=== PATIENT | female | born 1965 | race American Indian/Alaskan Native ===

== ENCOUNTER 2017-05-21 16:26 | Emergency (ER) | payer OTHER ==
[2017-05-21 17:00] LABS: Hematocrit 31.1 % (30.3-42.9); Hemoglobin 10.1 gm/dl (10.1-14.3); Mean Corpuscular HGB Conc 32 % (30-34); Mean Corpuscular Hemoglobin 27 pg (28-32); Mean Corpuscular Volume 83 fl (79-97); Platelet Count 281 K/mm3 (140-440); Red Blood Count 3.77 M/mm3 (3.65-5.03); White Blood Count 12.9 K/mm3 (4.5-11.0)
--- NOTE | 2017-05-21 17:06 | Emergency Department Report ---
ED Abdominal Pain HPI - General Chief Complaint: Abdominal Pain Stated Complaint: CANT URINATE Time Seen by Provider: 05/21/17 17:01 Source: patient Mode of arrival: Ambulatory Limitations: No Limitations - History of Present Illness Initial Comments: 51 YO FEMALE WITH URINARY RETENTION THAT BEGAN TODAY IN THE MORNING. PT REPORTS FREQUENCY,URGENCY BUT VERY LITTLE URINE OUTPUT. SHE HAS A H/O DM,HTN AND UTERINE PROLAPSE FOR WHICH HER DR NANETTE LI WANTED TO DO A COMPLETE HYSTERECTOMY BUT PT REFUSED. MD Complaint: abdominal pain -: Sudden Location: suprapubic (UNABLE TO URNIATE, SMALL AMOUNT COMES OUT) Migration to: no migration Severity scale (0 -10): 4 Quality: aching Consistency: constant Improves With: nothing Worsens With: movement - Related Data Allergies Allergy/AdvReac Type Severity Reaction Status Date / Time No Known Allergies Allergy Unverified 05/21/17 16:32 ED Review of Systems ROS: Stated complaint: CANT URINATE Other details as noted in HPI Constitutional: denies: chills, fever Eyes: denies: eye pain, eye discharge, vision change ENT: denies: ear pain, throat pain Respiratory: denies: cough, shortness of breath, wheezing Cardiovascular: denies: chest pain, palpitations Endocrine: no symptoms reported Gastrointestinal: denies: abdominal pain, nausea, diarrhea Genitourinary: urgency, frequency. denies: discharge Musculoskeletal: denies: back pain, joint swelling, arthralgia Skin: denies: rash, lesions Neurological: denies: headache, weakness, paresthesias Psychiatric: denies: anxiety, depression Hematological/Lymphatic: denies: easy bleeding, easy bruising ED Past Medical Hx - Past Medical History Hx Hypertension: Yes Hx Diabetes: Yes - Surgical History Past Surgical History?: No - Social History Smoking Status: Never Smoker Substance Use Type: None ED Physical Exam - General Limitations: No Limitations General appearance: alert, in no apparent distress - Head Head exam: Present: atraumatic, normocephalic - Eye Eye exam: Present: normal appearance - ENT ENT exam: Present: mucous membranes moist - Neck Neck exam: Present: normal inspection - Respiratory Respiratory exam: Present: normal lung sounds bilaterally. Absent: respiratory distress - Cardiovascular Cardiovascular Exam: Present: regular rate, normal rhythm. Absent: systolic murmur, diastolic murmur, rubs, gallop - GI/Abdominal GI/Abdominal exam: Present: soft, tenderness (SUPRAPUBIC), normal bowel sounds. Absent: guarding, rebound - Rectal Rectal exam: Present: deferred - External exam: Present: swelling (PROLAPSED UTERUS-ON BED, PUSHED BACK INTO THE VAGINA) Bi-manual exam: Present: uterine enlargement - Extremities Exam Extremities exam: Present: normal inspection, full ROM - Back Exam Back exam: Present: normal inspection - Neurological Exam Neurological exam: Present: alert, oriented X3 - Psychiatric Psychiatric exam: Present: normal affect, normal mood - Skin Skin exam: Present: warm, dry, intact, normal color. Absent: rash ED Course Vital Signs 05/21/17 05/21/17 16:32 18:54 Temperature 98.4 F Pulse Rate 123 H 92 H Respiratory 18 16 Rate Blood Pressure 202/109 Blood Pressure 184/101 [Right] O2 Sat by Pulse 100 100 Oximetry - Reevaluation(s) Reevaluation #1: 05/21/17 18:34 PT MARR IS FINALLY PUTTING OUT URINE. HER HORTICULTURE SUPERVISOR DR ROMINA LI HAD ADVISED HER TO HAVE A HYSTERECTOMY BUT PT DECLINED. ED Medical Decision Making - Lab Data Result diagrams: 05/21/17 16:44 05/21/17 16:44 - Radiology Data Radiology results: image reviewed (ACUTE ABD SERIES:NEGATIVE) - Medical Decision Making WILL CALL FOR ADMISSION FOR THIS PT BECAUSE OF THE URINARY OBSTRUCTION. DR TSILES HAS TAKEN OVER HER CARE . HE WILL CHECK HER CT OF ABDOMEN RESULTS AND CALL FOR ADMISSION. Critical care attestation.: If time is entered above; I have spent that time in minutes in the direct care of this critically ill patient, excluding procedure time. ED Disposition Clinical Impression: Urinary (tract) obstruction, Prolapsed uterus Abdominal pain Qualifiers: Abdominal location: unspecified location Qualified Code(s): R10.9 - Unspecified abdominal pain Disposition: OP ADMIT IP TO THIS HOSP Is pt being admited?: Yes Does the pt Need Aspirin: No Condition: Stable Instructions: Abdominal Pain (ED) Referrals: PRIMARY CARE, [Primary Care Provider] - 3-5 Days
[2017-05-21] MEDS ORDERED: TORADOL IV ONE (17:10)
[2017-05-21 17:16] LABS: Albumin 3.9 g/dL (3.9-5); Albumin/Globulin Ratio 1.1 %; Bilirubin,Total 0.3 mg/dL (0.1-1.2); Calcium 8.4 mg/dL (8.4-10.2); Chloride 96.8 mmol/L (98-107); Potassium 5.2 mmol/L (3.6-5.0); Total Protein 7.5 g/dL (6.3-8.2)
[2017-05-21 17:19] LABS: Bilirubin,Urine NEG (Negative); Blood,Urine SM (Negative); Ketones,Urine NEG (Negative); Leukocyte Esterase,Urine TR (Negative); Mucus,Urine FEW /HPF; Nitrite,Urine NEG (Negative); Urobilinogen,Urine < 2.0 mg/dL (<2.0)
[2017-05-21] MEDS ORDERED: NACL 0.9% 1000 ML 1,000 ML IV ONE ×2 (18:07→20:10)
[2017-05-21 18:45] LABS: Blastocytes % (Manual) 0 %
[2017-05-21 18:46] LABS: Basophils % (Manual) 0 % (0.0-1.8); Eosinophils % (Manual) 0 % (0.0-4.3)
[2017-05-21 18:52] LABS: Anisocytosis 1+; Diff Status Complete; Hypochromasia 1+
--- NOTE | 2017-05-21 18:53 | XRay Report ---
FINAL REPORT PROCEDURE: XR ABD SERIES W CXR 1V TECHNIQUE: Chest x-ray and two views of the abdomen are obtained HISTORY: ABD PAIN COMPARISON: No prior studies are available for comparison. FINDINGS: The heart is normal in size. There is no focal infiltrate, pneumothorax or pleural effusion. No free intraperitoneal air is seen. There may be mild right-sided constipation. Minimal small bowel air is seen without small-bowel dilation. No suspicious calcifications are seen. Mild dextroscoliosis is seen centered in the lower lumbar spine. IMPRESSION: There may be mild right-sided constipation.
[2017-05-21] MEDS ORDERED: CATAPRES PO ONE (21:28)
--- NOTE | 2017-05-21 21:38 | Cat Scan Report ---
FINAL REPORT PROCEDURE: CT ABDOMEN PELVIS W CON TECHNIQUE: Computerized axial tomography of the abdomen and pelvis was performed after the IV injection of iodinated nonionic contrast. HISTORY: URINARY RETENSTION, ?MASS COMPARISON: No prior studies are available for comparison. FINDINGS: Prominent interstitial markings are noted. There is mild cardiomegaly. Liver, spleen, pancreas and adrenal glands are within normal limits. Bilateral kidneys demonstrate uniform enhancement without hydronephrosis. There is mild degree bilateral perinephric fat stranding which is most likely a normal variation. Aorta is of normal caliber. There is no free fluid or free air. Gallbladder is partially distended. Small bowel loops are within normal limits. Multiple colonic diverticula are noted without evidence of diverticulitis. Appendix is normal. Mild degree residual stool is noted. An iso dense mass lesion is identified along the lateral aspect of uterus on the left measuring about 5 x 5 centimeters. A calcified lesion measuring 2 centimeters is noted in the anterior uterus. Mild degree degenerative changes are noted involving the lumbar spine. Is noted.. IMPRESSION: Mild cardiomegaly. Prominent interstitial markings most likely represent interstitial fibrosis versus interstitial edema. 5 centimeter isodense mass along the left lateral aspect of uterus most likely represents a fibroid. Ultrasound evaluation is recommended. A 2 centimeter calcific lesion of the anterior uterus also represents a calcified fibroid.
--- NOTE | 2017-05-21 22:31 | Emergency Department Report ---
Blank Doc - Documentation Documentation: Patient is a 51-year-old female that presented to the ER with urinary retention and bladder pain and uterine prolapse. I took over care from this ER doc for pending CT scan and possible MOTOR CHECKER consultation. June placed and 1 L of urine evacuated into June bag. Previous ER doc reduced uterine prolapse.Lab review, found to have elevated potassium and creatinine and low sodium, patient received 2 L of sodium chloride. Labs were rechecked. Electrolytes and kidney function improved. Patient to increase water. Pelvic exam done with ER nurse in room and uterus in normal position and no uterine prolapse noted. No acute findings on CT scan CT scan report reviewed. Discussed case with Dr. Santoyo MOTOR CHECKER on-call. Dr. Santoyo recommends leaving June in place and follow up in office as an outpatient. Patient also given reduction instructions for uterine prolapse. Patient stable for discharge home. No need for admission into the hospital. Patient to see primary care within 3. She will need her kidney function rechecked as outpatient. Patient to avoid NSAIDs.
[2017-05-21 23:11] LABS: Calcium 7.9 mg/dL (8.4-10.2); Chloride 103.9 mmol/L (98-107); Potassium 4.9 mmol/L (3.6-5.0)
[2017-05-21] MEDS ORDERED: DIFLUCAN PO ONE (23:24)
[2017-05-22 00:31] VITALS: BP 153/87
== END 2017-05-22 00:25 | disposition home or self-care (01) ==
LOC: ED 16:26
DX: N39.0 Urinary tract infection, site not specified (principal); N81.4 Uterovaginal prolapse, unspecified; I10 Essential (primary) hypertension; E11.9 Type 2 diabetes mellitus without complications
CPT/HCPCS: 36415; 51701; 74022; 74177; 80048; 80053; 81001; 81025; 83690; 85007; 85025; 96360; 99285; J7030; Q9967

== ENCOUNTER 2017-05-22 09:47 | Emergency (ER) | payer OTHER ==
[2017-05-22 09:52] VITALS: BP 144/73
--- NOTE | 2017-05-22 10:02 | Emergency Department Report ---
ED General Adult HPI - General Chief complaint: Medical Clearance Stated complaint: CATHETER REMOVAL Time Seen by Provider: 05/22/17 09:56 Source: patient, RN notes reviewed, old records reviewed Mode of arrival: Ambulatory Limitations: No Limitations - History of Present Illness Initial comments: HERE FOR MARR CHECK SEE NOT FROM YEST MD NOT IN TODAY ANTICIPATED -: Gradual Treatments Prior to Arrival: none - Related Data Allergies Allergy/AdvReac Type Severity Reaction Status Date / Time No Known Allergies Allergy Verified 05/21/17 23:15 ED Review of Systems ROS: Stated complaint: CATHETER REMOVAL Other details as noted in HPI Comment: NO COMPLAINTS JUST RECHECK ED Past Medical Hx - Past Medical History Hx Hypertension: Yes Hx Diabetes: Yes - Surgical History Past Surgical History?: No - Social History Smoking Status: Never Smoker Substance Use Type: None ED Physical Exam - General Limitations: No Limitations General appearance: alert - Head Head exam: Present: atraumatic - Eye Eye exam: Present: normal appearance - ENT ENT exam: Present: mucous membranes moist - Neck Neck exam: Present: normal inspection - Respiratory Respiratory exam: Present: normal lung sounds bilaterally - Cardiovascular Cardiovascular Exam: Present: regular rate - GI/Abdominal GI/Abdominal exam: Present: soft, normal bowel sounds. Absent: distended, tenderness, guarding, rebound, rigid, diminished bowel sounds - Rectal Rectal exam: Present: deferred - Extremities Exam Extremities exam: Present: normal inspection - Back Exam Back exam: Present: normal inspection - Neurological Exam Neurological exam: Present: alert, oriented X3, CN II-XII intact - Psychiatric Psychiatric exam: Present: normal affect, normal mood - Skin Skin exam: Present: warm, dry, intact ED Course Vital Signs 05/22/17 09:49 Temperature 98.4 F Pulse Rate 95 H Respiratory 16 Rate Blood Pressure 144/73 O2 Sat by Pulse 98 Oximetry - Reevaluation(s) Reevaluation #1: 05/22/17 10:17 HERE YEST W URINARY OBST AND UTERINE PROL. MARR PLACED TOLD TO SEE MD TODAY BUT MD NOT OPEN WILL SEE ON THURSDAY HERE TO HAVE MARR CHECKED DID NOT KNOW IF COULD STAY IN DRAINING CLEAR URINE NO PROBLEMS UTERUS INTERNAL PT IN NO PAIN VSS NO FEVER EDUCATED ON MARR CARE DC HOME W FOLLOW UP THURSDAY ED Medical Decision Making - Medical Decision Making SEE NOTE - Differential Diagnosis RECHECK Critical care attestation.: If time is entered above; I have spent that time in minutes in the direct care of this critically ill patient, excluding procedure time. ED Disposition Clinical Impression: Urinary (tract) obstruction, Marr catheter in place Disposition: TO HOME OR SELFCARE Is pt being admited?: No Does the pt Need Aspirin: No Condition: Stable Instructions: Marr Catheter Placement and Care (ED), Urinary Leg Bag (GEN) Additional Instructions: FOLLOW UP DR GEORGE PLANNED CARE OF MARR CATH INSTRUCTED CONTINUE HOME MEDS HAVE DR GEORGE REVIEW YOUR LABS FROM YESTERDAYS VISIT Forms: Work/School Release Form(ED) Time of Disposition: 10:01
== END 2017-05-22 11:30 | disposition home or self-care (01) ==
LOC: ED 09:47
DX: T83.098A Other mechanical complication of other urinary catheter, initial encounter (principal); I10 Essential (primary) hypertension; E11.9 Type 2 diabetes mellitus without complications; Y84.6 Urinary catheterization as the cause of abnormal reaction of the patient, or of later complication, without mention of misadventure at the time of the procedure; Y92.89 Other specified places as the place of occurrence of the external cause
CPT/HCPCS: 99282

== ENCOUNTER 2017-05-26 01:33 | Emergency (ER) | payer OTHER | END 2017-05-26 01:46 | disposition left against medical advice (07) | LOC: ED 01:33 | DX: R33.9 Retention of urine, unspecified (principal); Z53.21 Procedure and treatment not carried out due to patient leaving prior to being seen by health care provider ==

== ENCOUNTER 2018-07-18 12:01 | Inpatient (IN) | payer OTHER ==
[2018-07-18] MEDS ORDERED: HumuLIN R SUB-Q ONE (12:39)
[2018-07-18] MEDS ORDERED: PROVENTIL IH STA (12:41)
[2018-07-18] MEDS ORDERED: HumuLIN R ONE (12:44)
--- NOTE | 2018-07-18 12:47 | Emergency Department Report ---
- General Chief Complaint: Upper Respiratory Infection Stated Complaint: CHAN/COUGH Time Seen by Provider: 07/18/18 12:40 Source: patient Mode of arrival: Wheelchair Limitations: No Limitations - History of Present Illness Initial Comments: 53-year-old female with past medical history hypertension, diabetes, denies history of asthma since [facility] complaining of cough, congestion, coryza, otherwise, been worsening over the last 1 week. She denies any foreign travel or known sick contacts. Has a history of diabetes but has been off of her medication for about 6 months ago doctor discontinuing her diabetes Janumet for her having her blood sugars well controlled. No fever, chills, sweats. She reports no nausea, vomiting or no diarrhea. No rashes. No chest pain or palpitations. No presyncope MD Complaint: cough, sore throat, rhinorrhea, nasal congestion Severity: mild Quality: dull Consistency: constant Improves With: nothing Worsens With: nothing Associated Symptoms: rhinorrhea, nasal congestion, cough. denies: myalgias, diaphoresis, nausea, confusion, right sweats, weight loss, epistaxis, ear pain - Related Data Allergies Allergy/AdvReac Type Severity Reaction Status Date / Time No Known Allergies Allergy Verified 05/21/17 23:15 ED Review of Systems ROS: Stated complaint: CHAN/COUGH Other details as noted in HPI Constitutional: denies: chills, fever Eyes: denies: eye pain, eye discharge, vision change ENT: denies: ear pain, throat pain Respiratory: cough. denies: shortness of breath, wheezing Cardiovascular: denies: chest pain, palpitations Endocrine: no symptoms reported. denies: excessive sweating, flushing, increased thirst Gastrointestinal: denies: abdominal pain, nausea, diarrhea Genitourinary: denies: urgency, dysuria, discharge Musculoskeletal: denies: back pain, joint swelling, arthralgia Skin: denies: rash, lesions Neurological: denies: headache, weakness, paresthesias Psychiatric: denies: anxiety, depression Hematological/Lymphatic: denies: easy bleeding, easy bruising ED Past Medical Hx - Past Medical History Previous Medical History?: Yes Hx Hypertension: Yes Hx Diabetes: Yes Hx Asthma: Yes - Surgical History Past Surgical History?: No - Social History Smoking Status: Never Smoker Substance Use Type: None ED Physical Exam - General Limitations: No Limitations General appearance: alert, in no apparent distress - Head Head exam: Present: atraumatic, normocephalic - Eye Eye exam: Present: normal appearance, PERRL, EOMI - ENT ENT exam: Present: normal exam, normal orophraynx, mucous membranes moist, TM's normal bilaterally - Neck Neck exam: Present: normal inspection, full ROM. Absent: tenderness - Respiratory Respiratory exam: Present: normal lung sounds bilaterally, wheezes, rhonchi. Absent: respiratory distress, rales, chest wall tenderness, accessory muscle use, decreased breath sounds - Cardiovascular Cardiovascular Exam: Present: regular rate, normal rhythm. Absent: systolic murmur, diastolic murmur, rubs, gallop - GI/Abdominal GI/Abdominal exam: Present: soft, normal bowel sounds - Extremities Exam Extremities exam: Present: normal inspection - Back Exam Back exam: Present: normal inspection - Neurological Exam Neurological exam: Present: alert, oriented X3 - Psychiatric Psychiatric exam: Present: normal affect, normal mood - Skin Skin exam: Present: warm, dry, intact, normal color. Absent: rash ED Course Vital Signs 07/18/18 12:10 Temperature 97.9 F Pulse Rate 91 H Respiratory 24 Rate Blood Pressure 139/75 O2 Sat by Pulse 99 Oximetry - Consultations Consultation #1: 07/18/18 15:11 xray shows bilateral penumonia. case discussed with Dr. hawthorne. plan is to start sepsis protocol and admit ED Medical Decision Making - Lab Data Result diagrams: 07/18/18 15:35 07/18/18 15:35 Critical care attestation.: If time is entered above; I have spent that time in minutes in the direct care of this critically ill patient, excluding procedure time. ED Disposition Clinical Impression: Acute renal failure, Hyperglycemia due to type 2 diabetes mellitus, Bilateral pneumonia Disposition: DC-[id number] OP ADMIT IP TO THIS HOSP Is pt being admited?: No Does the pt Need Aspirin: No Condition: Stable Instructions: Diabetes Mellitus Type 2 in Adults (ED), Bacterial Pneumonia (ED) Referrals: CHRIS MAHER [Primary Care Provider] - 3-5 Days
--- NOTE | 2018-07-18 14:37 | XRay Report ---
FINAL REPORT EXAM: XR CHEST ROUTINE 2V HISTORY: cough and wheeze TECHNIQUE: Frontal and lateral views of the chest. PRIORS: None currently available. FINDINGS: Cardiac silhouette is within normal limits. Right perihilar consolidation. Focal infiltrates in the left suprahilar region and left lower lobe. N o pneumothorax. No effusion. There are no suspicious osseous lesions. IMPRESSION: Bilateral pneumonias.
[2018-07-18] MEDS ORDERED: LEVAQUIN PO STA (14:54)
--- NOTE | 2018-07-18 15:05 | Emergency Department Report ---
Blank Doc - Documentation Documentation: Patient is a 52-year-old female who is complaining of cough and congestion. P fernanda's x-ray shows extensive infiltrate in the right upper right middle and left upper lobes consistent with a pneumonia. Patient vital signs are relatively within normal limits however because of the infection patient will have laboratory studies drawn as well as a lactic acid. Patient will be started on IV Levaquin.
[2018-07-18] MEDS ORDERED: NACL 0.9% 1000 ML IV ONE (15:06)
[2018-07-18] MEDS ORDERED: LEVAQUIN 750MG/150ML 750 MG/150 ML BAG IV ONE (15:08)
[2018-07-18 15:53] LABS: Hematocrit 26.1 % (30.3-42.9); Hemoglobin 8.2 gm/dl (10.1-14.3); Mean Corpuscular HGB Conc 32 % (30-34); Mean Corpuscular Volume 83 fl (79-97); Platelet Count 327 K/mm3 (140-440); Red Blood Count 3.14 M/mm3 (3.65-5.03); Red Cell Distribution Width 14.5 % (13.2-15.2)
[2018-07-18 16:45] LABS: Albumin 3.5 g/dL (3.9-5); Basophils % (Manual) 0 % (0.0-1.8); Calcium 8.2 mg/dL (8.4-10.2); Eosinophils % (Manual) 0 % (0.0-4.3); Total Cells Counted 100
[2018-07-18 16:46] LABS: Anisocytosis 1+
[2018-07-18 16:47] LABS: Poikilocytosis Few; Tear Drop Cells Rare
[2018-07-18 20:16] LABS: Bilirubin,Urine NEG (Negative); Blood,Urine SM (Negative); Color,Urine Straw (Yellow); Mucus,Urine FEW /HPF; Urobilinogen,Urine < 2.0 mg/dL (<2.0)
[2018-07-18] MEDS ORDERED: DILAUDID IV PRN (21:58)
[2018-07-18] MEDS ORDERED: SODIUM CHLORIDE FLUSH SYRINGE 10 ML IV PRN (21:58)
[2018-07-18] MEDS ORDERED: ZOFRAN IV PRN (21:58)
[2018-07-18] MEDS ORDERED: TYLENOL PO PRN (21:58)
--- NOTE | 2018-07-18 21:58 | Event Note ---
Date: 07/18/18 See dictated H/p inreports [facility]add Pneumonia
[2018-07-18] MEDS: SODIUM CHLORIDE FLUSH SYRINGE 10 ML IV SCH (23:11)
[2018-07-18] MEDS: NACL 0.9% 1000 ML 1,000 ML IV SCH (23:28)
[2018-07-19] MEDS: PERCOCET 5/325 PO PRN ×3 (01:44→21:42)
[2018-07-19] MEDS ORDERED: PROVENTIL IH PRN (06:25)
--- NOTE | 2018-07-19 06:47 | History and Physical Report ---
CHIEF COMPLAINT: Shortness of breath and cough and congestion for 1 week. HISTORY OF PRESENT ILLNESS: A 52-year-old female with past medical history significant for hypertension and diabetes, comes in for increasing cough and shortness of breath and nasal congestion for the last one week. The patient has not been taking her medications for diabetes because it was discontinued by her primary care. Low grade fever present. No chills. No recent travel. No orthopnea. No PND attacks. No chest pain. PAST MEDICAL HISTORY: Significant for hypertension, diabetes, and asthma. PAST SURGICAL HISTORY: None. SOCIAL HISTORY: Does not smoke. No alcohol, no recreational drugs. FAMILY HISTORY: Significant for hypertension. REVIEW OF SYSTEMS: Significant for cough, cold, and shortness of breath. Low-grade fever present. Otherwise, review of systems negative. PHYSICAL EXAMINATION: GENERAL: Middle-aged female, slightly in respiratory distress, well nourished, well developed. HEENT: Unremarkable. NECK: Supple, no lymphadenopathy, no thyromegaly. LUNGS: Bilateral rhonchi present. No rales. CARDIOVASCULAR: S1, S2 heard. No gallop, no murmur, no rub. Apical impulse in left fifth intercostal space and midclavicular line. ABDOMEN: Soft and benign. No hepatosplenomegaly. No guarding, no rigidity. Hernial orifices are normal. EXTREMITIES: Good pedal pulses. CENTRAL NERVOUS SYSTEM: Alert and oriented x 4, nonfocal exam. SKIN: Normal. LABORATORY DATA: Shows white count 11,100, H and H are 8.2 and 26.1, MCH is low at 26. Electrolytes: Sodium is 133, bicarbonate is 18, potassium is 6.0. Glucose is 316. BUN and creatinine are 50 and 3.0, alkaline phosphatase is 170. Albumin is 3.5. DIAGNOSTIC DATA: Chest x-ray shows bilateral pneumonia. EKG, sinus tachycardia. ASSESSMENT AND PLAN: 1. Bilateral pneumonia. The patient initiated on IV antibiotics in the form of ceftriaxone and azithromycin. 2. Asthma exacerbation. DuoNeb and albuterol neb solutions. Low dose Solu-Medrol. 3. Uncontrolled diabetes. The patient initiated on insulin coverage. The patient to be discharged on long-acting insulin and basal bolus regimen if necessary as per primary team. The patient needs to be on either insulin or oral hypoglycemics. We will defer to the primary team. 4. Hypertension. Continue antihypertensives. 5. Acute kidney injury. The patient's creatinine is 3.0, baseline creatinine is much lower. The patient follows with Dr. Ramesh. [facility]phrology consulted. 6. Deep venous thrombosis prophylaxis, Lovenox 40 mg subcutaneous daily. JOB# [id number] [facility]/TERESA DIAZD
[2018-07-19] MEDS: DUONEB *Not for PRN Use IH SCH ×4 (08:03→19:34)
[2018-07-19 08:45] LABS: Basophils % (Auto) 0.3 % (0.0-1.8); Eosinophils % (Auto) 0.3 % (0.0-4.3); Hematocrit 22.2 % (30.3-42.9); Hemoglobin 7.4 gm/dl (10.1-14.3); Lymphocytes % (Auto) 10.6 % (13.4-35.0); Mean Corpuscular HGB Conc 33 % (30-34); Mean Corpuscular Volume 84 fl (79-97); Monocytes # (Auto) 0.6 K/mm3 (0.0-0.8); Monocytes % (Auto) 6.9 % (0.0-7.3); Platelet Count 296 K/mm3 (140-440); Red Blood Count 2.65 M/mm3 (3.65-5.03); Red Cell Distribution Width 14.8 % (13.2-15.2)
--- NOTE | 2018-07-19 08:54 | Consultation ---
History of Present Illness - Reason for Consult Consult date: 07/19/18 acute renal failure, hyperkalemia Medications and Allergies Allergies Allergy/AdvReac Type Severity Reaction Status Date / Time No Known Allergies Allergy Verified 05/21/17 23:15 Home Medications Medication Instructions Recorded Confirmed Last Taken Type Metoprolol Xl [Metoprolol 1 tab PO DAILY 07/18/18 07/18/18 Unknown History SUCCINATE ER TAB] Olmesartan/Amlodipin/Hcthiazid 1 tab PO DAILY 07/18/18 07/18/18 Unknown History [[id number] 40-5-12.5] Active Meds: Active Medications Acetaminophen (Tylenol) 650 mg PO Q4H PRN PRN Reason: Pain MILD(1-3)/Fever >100.5/KELLY Albuterol (Proventil) 2.5 mg IH Q4HRT PRN PRN Reason: Shortness Of Breath Albuterol/Ipratropium (Duoneb *Not For Prn Use*) 1 ampul IH QIDRT [facility] Last Admin: 07/19/18 08:03 Dose: 1 ampul Documented by: Amlodipine Besylate (Norvasc) 5 mg PO QDAY TIA Hydrochlorothiazide (Hctz) 12.5 mg PO QDAY [facility] Hydromorphone HCl (Dilaudid) 0.5 mg IV Q3H PRN PRN Reason: Pain , Severe (7-10) Sodium Chloride (Nacl 0.9% 1000 Ml) 1,000 mls @ 75 mls/hr IV DIRECT TIA Last Admin: 07/18/18 23:28 Dose: 75 mls/hr Documented by: Azithromycin 500 mg/ Sodium (Chloride) 250 mls @ 250 mls/hr IV Q24HR [facility] Ceftriaxone Sodium (Rocephin/Ns 2 Gm/100 Ml) 2 gm in 100 mls @ 200 mls/hr IV Q24HR [facility]; Protocol Losartan Potassium (Cozaar) 100 mg PO QDAY [facility] Methylprednisolone Sodium Succinate (Solu-Medrol) 20 mg IV Q8HR [facility] Metoprolol Succinate (Toprol Xl) 100 mg PO QDAY [facility] Ondansetron HCl (Zofran) 4 mg IV Q8H PRN PRN Reason: Nausea And Vomiting Oxycodone/Acetaminophen (Percocet 5/325) 1 tab PO Q6H PRN PRN Reason: Pain, Moderate (4-6) Last Admin: 07/19/18 01:44 Dose: 1 tab Documented by: Sodium Chloride (Sodium Chloride Flush Syringe 10 Ml) 10 ml IV BID TIA Last Admin: 07/18/18 23:11 Dose: 10 ml Documented by: Sodium Chloride (Sodium Chloride Flush Syringe 10 Ml) 10 ml IV PRN PRN PRN Reason: LINE FLUSH Exam - Vital Signs Vital signs: Vital Signs Temp Pulse Resp BP Pulse Ox 97.9 F 91 H 24 139/75 99 07/18/18 12:10 07/18/18 12:10 07/18/18 12:10 07/18/18 12:10 07/18/18 12:10 Results - Lab Results 07/19/18 07:56 07/18/18 15:35 Most recent lab results Calcium 8.2 mg/dL (8.4-10.2) L 07/18/18 15:35
[2018-07-19 08:56] LABS: Alanine Aminotransferase 29 units/L (7-56); BUN/Creatinine Ratio 15; Blood Urea Nitrogen 48 mg/dL (7-17); Calcium 7.9 mg/dL (8.4-10.2); Hemolysis Index 0
[2018-07-19] MEDS ORDERED: KIONEX PO STA (09:01)
[2018-07-19] MEDS: TOPROL XL PO SCH (09:55)
[2018-07-19] MEDS: NORVASC PO SCH (09:57)
[2018-07-19] MEDS ORDERED: AMLODIPIN PO SCH (10:00)
[2018-07-19] MEDS ORDERED: HCTZ PO SCH (10:00)
[2018-07-19] MEDS ORDERED: OLMESARTAN PO SCH (10:00)
[2018-07-19] MEDS ORDERED: HCTHIAZID PO SCH (10:00)
[2018-07-19] MEDS ORDERED: COZAAR PO SCH (10:00)
[2018-07-19] MEDS: ZITHROMAX 500 MG in NACL 0.9% 250ML 250 ML IV SCH (10:07)
[2018-07-19] MEDS: ROCEPHIN/NS 2 GM/100 ML 2 GM/100 ML BAG IV SCH (10:07)
[2018-07-19] MEDS: SODIUM CHLORIDE FLUSH SYRINGE 10 ML IV SCH ×2 (10:08→21:48)
[2018-07-19] MEDS: SOLU-Medrol IV SCH ×3 (10:12→21:42)
--- NOTE | 2018-07-19 12:49 | Ultrasound Report ---
ULTRASOUND RENAL BILATERAL HISTORY: Arterial insufficiency. TECHNIQUE: transabdominal ultrasound with color Doppler interrogation. COMPARISON: none. FINDINGS: The right kidney measures 9.9cm. Right renal cortex: 1.2cm. The left kidney measures 10.1cm. Left renal cortex: 1.2cm. The kidneys are normal size, contour and position. There is increased renal cortical echotexture bilaterally consistent with nonspecific renal parenchymal disease. Corticomedullary differentiation is preserved. No evidence for cystic disease, mass, nephrolithiasis, hydronephrosis or perinephric fluid. The views of the bladder and the region of the ureters appear normal. IMPRESSION: Renal parenchymal disease.
[2018-07-19] MEDS ORDERED: HumaLOG SUB-Q ONE (14:14)
--- NOTE | 2018-07-19 14:55 | Progress Note ---
Assessment and Plan Assessment and plan: Bilateral pneumonia - Patient is on IV ceftriaxone and azithromycin - I reviewed chest x-ray and labs Asthma exacerbation - Patient is on DuoNeb's, nebulizer, oxygen support, and Solu-Medrol Diabetes mellitus with hyperglycemia - Sliding scale insulin, Accu-Cheks, ADA diet Hypertension - Continue current medications Acute on chronic renal failure - Unknown baseline, but the patient said she has been followed by luggage repairer one time - Nephrology consulted Obesity - Patient is counseled about weight loss DVT prophylaxis - On heparin Disposition - Continue inpatient care History Interval history: Patient was seen and evaluated this morning, patient is still complaining some shortness of breath. Hospitalist Physical - Physical exam Narrative exam: Not in cardiopulmonary distress. The patient appeared well nourished and normally developed. Vital signs as documented. Head exam is unremarkable. No scleral icterus . Neck is without jugular venous distension, thyromegaly, or carotid bruits. Lungs are clear to auscultation. Cardiac exam reveals regular rate and Rhythm. Abdominal exam reveals normal bowel sounds. Extremities are nonedematous and both femoral and pedal pulses are normal. COPY CAMERA OPERATOR: Alert and oriented 3. No focal weakness. - Constitutional Vitals: Temp Pulse Resp BP Pulse Ox 97.8 F 89 16 117/61 93 07/19/18 05:42 07/19/18 08:09 07/19/18 08:09 07/19/18 05:42 07/19/18 08:10 Results - Labs CBC & Chem 7: 07/19/18 07:56 07/19/18 07:56 Labs: Laboratory Last Values WBC 9.2 K/mm3 (4.5-11.0) 07/19/18 07:56 RBC 2.65 M/mm3 (3.65-5.03) L 07/19/18 07:56 Hgb 7.4 gm/dl (10.1-14.3) L 07/19/18 07:56 Hct 22.2 % (30.3-42.9) L 07/19/18 07:56 MCV 84 fl (79-97) 07/19/18 07:56 MCH 28 pg (28-32) 07/19/18 07:56 MCHC 33 % (30-34) 07/19/18 07:56 RDW 14.8 % (13.2-15.2) 07/19/18 07:56 Plt Count 296 K/mm3 (140-440) 07/19/18 07:56 Lymph % (Auto) 10.6 % (13.4-35.0) L 07/19/18 07:56 [place] % (Auto) 6.9 % (0.0-7.3) 07/19/18 07:56 Eos % (Auto) 0.3 % (0.0-4.3) 07/19/18 07:56 Baso % (Auto) 0.3 % (0.0-1.8) 07/19/18 07:56 Lymph # 1.0 K/mm3 (1.2-5.4) L 07/19/18 07:56 [place] # 0.6 K/mm3 (0.0-0.8) 07/19/18 07:56 Eos # 0.0 K/mm3 (0.0-0.4) 07/19/18 07:56 Baso # 0.0 K/mm3 (0.0-0.1) 07/19/18 07:56 Add Manual Diff Complete 07/18/18 15:35 Total Counted 100 07/18/18 15:35 Seg Neutrophils % 81.9 % (40.0-70.0) H 07/19/18 07:56 Seg Neuts % (Manual) 93.0 % (40.0-70.0) H 07/18/18 15:35 Band Neutrophils % 0 % 07/18/18 15:35 Lymphocytes % (Manual) 4.0 % (13.4-35.0) L 07/18/18 15:35 Reactive Lymphs % (Man) 0 % 07/18/18 15:35 Monocytes % (Manual) 3.0 % (0.0-7.3) 07/18/18 15:35 Eosinophils % (Manual) 0 % (0.0-4.3) 07/18/18 15:35 Basophils % (Manual) 0 % (0.0-1.8) 07/18/18 15:35 Metamyelocytes % 0 % 07/18/18 15:35 Myelocytes % 0 % 07/18/18 15:35 Promyelocytes % 0 % 07/18/18 15:35 Blast Cells % 0 % 07/18/18 15:35 Nucleated RBC % Not Reportable 07/18/18 15:35 Seg Neutrophils # 7.5 K/mm3 (1.8-7.7) 07/19/18 07:56 Seg Neutrophils # Man 10.3 K/mm3 (1.8-7.7) H 07/18/18 15:35 Band Neutrophils # 0.0 K/mm3 07/18/18 15:35 Lymphocytes # (Manual) 0.4 K/mm3 (1.2-5.4) L 07/18/18 15:35 Abs React Lymphs (Man) 0.0 K/mm3 07/18/18 15:35 Monocytes # (Manual) 0.3 K/mm3 (0.0-0.8) 07/18/18 15:35 Eosinophils # (Manual) 0.0 K/mm3 (0.0-0.4) 07/18/18 15:35 Basophils # (Manual) 0.0 K/mm3 (0.0-0.1) 07/18/18 15:35 Metamyelocytes # 0.0 K/mm3 07/18/18 15:35 Myelocytes # 0.0 K/mm3 07/18/18 15:35 Promyelocytes # 0.0 K/mm3 07/18/18 15:35 Blast Cells # 0.0 K/mm3 07/18/18 15:35 WBC Morphology Not Reportable 07/18/18 15:35 Hypersegmented Neuts Not Reportable 07/18/18 15:35 Hyposegmented Neuts Not Reportable 07/18/18 15:35 Hypogranular Neuts Not Reportable 07/18/18 15:35 Smudge Cells Not Reportable 07/18/18 15:35 Toxic Granulation Not Reportable 07/18/18 15:35 Toxic Vacuolation Not Reportable 07/18/18 15:35 Dohle Bodies Not Reportable 07/18/18 15:35 Pelger-Huet Anomaly Not Reportable 07/18/18 15:35 Jose Carlos Rods Not Reportable 07/18/18 15:35 Platelet Estimate Appears normal 07/18/18 15:35 Clumped Platelets Not Reportable 07/18/18 15:35 Plt Clumps, EDTA Not Reportable 07/18/18 15:35 Large Platelets Not Reportable 07/18/18 15:35 Giant Platelets Not Reportable 07/18/18 15:35 Platelet Satelliting Not Reportable 07/18/18 15:35 Plt Morphology Comment Not Reportable 07/18/18 15:35 RBC Morphology Not Reportable 07/18/18 15:35 Dimorphic RBCs Not Reportable 07/18/18 15:35 Polychromasia Not Reportable 07/18/18 15:35 Hypochromasia Not Reportable 07/18/18 15:35 Poikilocytosis Few 07/18/18 15:35 Anisocytosis 1+ 07/18/18 15:35 Microcytosis Few 07/18/18 15:35 Macrocytosis Not Reportable 07/18/18 15:35 Spherocytes Not Reportable 07/18/18 15:35 Pappenheimer Bodies Not Reportable 07/18/18 15:35 Sickle Cells Not Reportable 07/18/18 15:35 Target Cells Not Reportable 07/18/18 15:35 Tear Drop Cells Rare 07/18/18 15:35 Ovalocytes Not Reportable 07/18/18 15:35 Helmet Cells Not Reportable 07/18/18 15:35 [place] Bodies Not Reportable 07/18/18 15:35 [place] Rings Not Reportable 07/18/18 15:35 [place] Cells Not Reportable 07/18/18 15:35 Bite Cells Not Reportable 07/18/18 15:35 Crenated Cell Not Reportable 07/18/18 15:35 Elliptocytes Not Reportable 07/18/18 15:35 Acanthocytes (Spur) Not Reportable 07/18/18 15:35 Rouleaux Not Reportable 07/18/18 15:35 Hemoglobin C Crystals Not Reportable 07/18/18 15:35 Schistocytes Not Reportable 07/18/18 15:35 Malaria parasites Not Reportable 07/18/18 15:35 Saw Bodies Not Reportable 07/18/18 15:35 Hem Pathologist Commnt No 07/18/18 15:35 Sodium 137 mmol/L (137-145) 07/19/18 07:56 Potassium 6.1 mmol/L (3.6-5.0) H* 07/19/18 07:56 Chloride 106.3 mmol/L (98-107) 07/19/18 07:56 Carbon Dioxide 19 mmol/L (22-30) L 07/19/18 07:56 Anion Gap 18 mmol/L 07/19/18 07:56 BUN 48 mg/dL (7-17) H 07/19/18 07:56 Creatinine 3.1 mg/dL (0.7-1.2) H 07/19/18 07:56 Estimated GFR 19 ml/min 07/19/18 07:56 BUN/Creatinine Ratio 15 % 07/19/18 07:56 Glucose 186 mg/dL (65-100) H 07/19/18 07:56 POC Glucose 329 (70-105) H 07/19/18 13:55 Hemoglobin A1c 10.4 % (4-6) H 07/18/18 15:35 Lactic Acid 1.80 mmol/L (0.7-2.0) 07/18/18 15:35 Calcium 7.9 mg/dL (8.4-10.2) L 07/19/18 07:56 Total Bilirubin < 0.20 mg/dL (0.1-1.2) 07/19/18 07:56 AST 11 units/L (5-40) 07/19/18 07:56 ALT 29 units/L (7-56) 07/19/18 07:56 Alkaline Phosphatase 138 units/L (35-129) H 07/19/18 07:56 Total Protein 6.3 g/dL (6.3-8.2) 07/19/18 07:56 Albumin 3.0 g/dL (3.9-5) L 07/19/18 07:56 Albumin/Globulin Ratio 0.9 % 07/19/18 07:56 Urine Color Straw (Yellow) 07/18/18 19:53 Urine Turbidity Clear (Clear) 07/18/18 19:53 Urine pH 5.0 (5.0-7.0) 07/18/18 19:53 Ur Specific [place] 1.010 (1.003-1.030) 07/18/18 19:53 Urine Protein 100 mg/dl mg/dL (Negative) 07/18/18 19:53 Urine Glucose (UA) 150 mg/dL (Negative) 07/18/18 19:53 Urine Ketones Neg mg/dL (Negative) 07/18/18 19:53 Urine Blood Sm (Negative) 07/18/18 19:53 Urine Nitrite Neg (Negative) 07/18/18 19:53 Urine Bilirubin Neg (Negative) 07/18/18 19:53 Urine Urobilinogen < 2.0 mg/dL (<2.0) 07/18/18 19:53 Ur Leukocyte Esterase Neg (Negative) 07/18/18 19:53 Urine WBC (Auto) 1.0 /HPF (0.0-6.0) 07/18/18 19:53 Urine RBC (Auto) 2.0 /HPF (0.0-6.0) 07/18/18 19:53 U Epithel Cells (Auto) 1.0 /HPF (0-13.0) 07/18/18 19:53 Urine Mucus Few /HPF 07/18/18 19:53
[2018-07-19] MEDS: NACL 0.9% 1000 ML 1,000 ML IV SCH (18:06)
[2018-07-19] MEDS: HumaLOG SUB-Q SCH ×2 (18:06→21:48)
[2018-07-19 21:48] LABS: Hepatitis B Surface Antigen Non-Reactive (Negative); Hepatitis C Virus Antibody Non-Reactive (NonReactive)
[2018-07-20] MEDS: SOLU-Medrol IV SCH ×3 (06:00→21:54)
[2018-07-20 06:44] LABS: Calcium 8.2 mg/dL (8.4-10.2)
[2018-07-20] MEDS: DUONEB *Not for PRN Use IH SCH ×4 (09:06→19:41)
[2018-07-20] MEDS: TOPROL XL PO SCH (09:36)
[2018-07-20] MEDS: NORVASC PO SCH (09:36)
[2018-07-20] MEDS: HumaLOG SUB-Q SCH ×6 (09:37→21:53)
[2018-07-20] MEDS: ROCEPHIN/NS 2 GM/100 ML 2 GM/100 ML BAG IV SCH (09:46)
[2018-07-20] MEDS: NACL 0.9% 1000 ML 1,000 ML IV SCH (09:47)
[2018-07-20] MEDS: ZITHROMAX 500 MG in NACL 0.9% 250ML 250 ML IV SCH (09:47)
[2018-07-20] MEDS: SODIUM CHLORIDE FLUSH SYRINGE 10 ML IV SCH ×2 (09:48→21:54)
--- NOTE | 2018-07-20 11:07 | Progress Note ---
Assessment and Plan Assessment and plan: Bilateral pneumonia - Patient is on IV ceftriaxone and azithromycin - I reviewed chest x-ray and labs Asthma exacerbation - Patient is on DuoNeb's, nebulizer, oxygen support, and Solu-Medrol Diabetes mellitus with hyperglycemia - Sliding scale insulin, Accu-Cheks, ADA diet Hypertension - Continue current medications Acute on chronic renal failure - Unknown baseline, but the patient said she has been followed by clinical provider trainer one time - Nephrology consulted Obesity - Patient is counseled about weight loss DVT prophylaxis - On heparin Disposition - Continue inpatient care History Interval history: Review of systems Constitutional: No fevers, no malaise, no joint pains CVS: No chest pain, no orthopnea, no dyspnea on exertion, no pedal edema GI: No abdominal pain, no diarrhea, no vomiting, no constipation Respiratory: No shortness of breath, no wheezing, no coughing Hospitalist Physical - Physical exam Narrative exam: General.: Appears well, no distress, nontoxic HEENT: Moist mucous membranes, extraocular muscles intact, no lymphadenopathy Neck: supple Cardiac: S1-S2 heard Lungs: clear to auscultation bilaterally Abdomen: soft , nontender, nondistended, bowel sounds positive Extremities: no edema clubbing or cyanosis Skin: no rash or lesions Neurologic: no gross focal deficits Psych: calm, and cooperative - Constitutional Vitals: Temp Pulse Resp BP Pulse Ox 97.9 F 122 H 18 142/86 99 07/20/18 05:36 07/20/18 09:36 07/20/18 09:09 07/20/18 05:36 07/20/18 09:09 Results - Labs CBC & Chem 7: 07/19/18 07:56 07/20/18 05:21 Labs: Laboratory Last Values WBC 9.2 K/mm3 (4.5-11.0) 07/19/18 07:56 RBC 2.65 M/mm3 (3.65-5.03) L 07/19/18 07:56 Hgb 7.4 gm/dl (10.1-14.3) L 07/19/18 07:56 Hct 22.2 % (30.3-42.9) L 07/19/18 07:56 MCV 84 fl (79-97) 07/19/18 07:56 MCH 28 pg (28-32) 07/19/18 07:56 MCHC 33 % (30-34) 07/19/18 07:56 RDW 14.8 % (13.2-15.2) 07/19/18 07:56 Plt Count 296 K/mm3 (140-440) 07/19/18 07:56 Lymph % (Auto) 10.6 % (13.4-35.0) L 07/19/18 07:56 [place] % (Auto) 6.9 % (0.0-7.3) 07/19/18 07:56 Eos % (Auto) 0.3 % (0.0-4.3) 07/19/18 07:56 Baso % (Auto) 0.3 % (0.0-1.8) 07/19/18 07:56 Lymph # 1.0 K/mm3 (1.2-5.4) L 07/19/18 07:56 [place] # 0.6 K/mm3 (0.0-0.8) 07/19/18 07:56 Eos # 0.0 K/mm3 (0.0-0.4) 07/19/18 07:56 Baso # 0.0 K/mm3 (0.0-0.1) 07/19/18 07:56 Add Manual Diff Complete 07/18/18 15:35 Total Counted 100 07/18/18 15:35 Seg Neutrophils % 81.9 % (40.0-70.0) H 07/19/18 07:56 Seg Neuts % (Manual) 93.0 % (40.0-70.0) H 07/18/18 15:35 Band Neutrophils % 0 % 07/18/18 15:35 Lymphocytes % (Manual) 4.0 % (13.4-35.0) L 07/18/18 15:35 Reactive Lymphs % (Man) 0 % 07/18/18 15:35 Monocytes % (Manual) 3.0 % (0.0-7.3) 07/18/18 15:35 Eosinophils % (Manual) 0 % (0.0-4.3) 07/18/18 15:35 Basophils % (Manual) 0 % (0.0-1.8) 07/18/18 15:35 Metamyelocytes % 0 % 07/18/18 15:35 Myelocytes % 0 % 07/18/18 15:35 Promyelocytes % 0 % 07/18/18 15:35 Blast Cells % 0 % 07/18/18 15:35 Nucleated RBC % Not Reportable 07/18/18 15:35 Seg Neutrophils # 7.5 K/mm3 (1.8-7.7) 07/19/18 07:56 Seg Neutrophils # Man 10.3 K/mm3 (1.8-7.7) H 07/18/18 15:35 Band Neutrophils # 0.0 K/mm3 07/18/18 15:35 Lymphocytes # (Manual) 0.4 K/mm3 (1.2-5.4) L 07/18/18 15:35 Abs React Lymphs (Man) 0.0 K/mm3 07/18/18 15:35 Monocytes # (Manual) 0.3 K/mm3 (0.0-0.8) 07/18/18 15:35 Eosinophils # (Manual) 0.0 K/mm3 (0.0-0.4) 07/18/18 15:35 Basophils # (Manual) 0.0 K/mm3 (0.0-0.1) 07/18/18 15:35 Metamyelocytes # 0.0 K/mm3 07/18/18 15:35 Myelocytes # 0.0 K/mm3 07/18/18 15:35 Promyelocytes # 0.0 K/mm3 07/18/18 15:35 Blast Cells # 0.0 K/mm3 07/18/18 15:35 WBC Morphology Not Reportable 07/18/18 15:35 Hypersegmented Neuts Not Reportable 07/18/18 15:35 Hyposegmented Neuts Not Reportable 07/18/18 15:35 Hypogranular Neuts Not Reportable 07/18/18 15:35 Smudge Cells Not Reportable 07/18/18 15:35 Toxic Granulation Not Reportable 07/18/18 15:35 Toxic Vacuolation Not Reportable 07/18/18 15:35 Dohle Bodies Not Reportable 07/18/18 15:35 Pelger-Huet Anomaly Not Reportable 07/18/18 15:35 Jose Carlos Rods Not Reportable 07/18/18 15:35 Platelet Estimate Appears normal 07/18/18 15:35 Clumped Platelets Not Reportable 07/18/18 15:35 Plt Clumps, EDTA Not Reportable 07/18/18 15:35 Large Platelets Not Reportable 07/18/18 15:35 Giant Platelets Not Reportable 07/18/18 15:35 Platelet Satelliting Not Reportable 07/18/18 15:35 Plt Morphology Comment Not Reportable 07/18/18 15:35 RBC Morphology Not Reportable 07/18/18 15:35 Dimorphic RBCs Not Reportable 07/18/18 15:35 Polychromasia Not Reportable 07/18/18 15:35 Hypochromasia Not Reportable 07/18/18 15:35 Poikilocytosis Few 07/18/18 15:35 Anisocytosis 1+ 07/18/18 15:35 Microcytosis Few 07/18/18 15:35 Macrocytosis Not Reportable 07/18/18 15:35 Spherocytes Not Reportable 07/18/18 15:35 Pappenheimer Bodies Not Reportable 07/18/18 15:35 Sickle Cells Not Reportable 07/18/18 15:35 Target Cells Not Reportable 07/18/18 15:35 Tear Drop Cells Rare 07/18/18 15:35 Ovalocytes Not Reportable 07/18/18 15:35 Helmet Cells Not Reportable 07/18/18 15:35 Re[place] Bodies Not Reportable 07/18/18 15:35 [place] Rings Not Reportable 07/18/18 15:35 [place] Cells Not Reportable 07/18/18 15:35 Bite Cells Not Reportable 07/18/18 15:35 Crenated Cell Not Reportable 07/18/18 15:35 Elliptocytes Not Reportable 07/18/18 15:35 Acanthocytes (Spur) Not Reportable 07/18/18 15:35 Rouleaux Not Reportable 07/18/18 15:35 Hemoglobin C Crystals Not Reportable 07/18/18 15:35 Schistocytes Not Reportable 07/18/18 15:35 Malaria parasites Not Reportable 07/18/18 15:35 Saw Bodies Not Reportable 07/18/18 15:35 Hem Pathologist Commnt No 07/18/18 15:35 Sodium 139 mmol/L (137-145) 07/20/18 05:21 Potassium 5.1 mmol/L (3.6-5.0) H 07/20/18 05:21 Chloride 107.3 mmol/L (98-107) H 07/20/18 05:21 Carbon Dioxide 17 mmol/L (22-30) L 07/20/18 05:21 Anion Gap 20 mmol/L 07/20/18 05:21 BUN 46 mg/dL (7-17) H 07/20/18 05:21 Creatinine 2.9 mg/dL (0.7-1.2) H 07/20/18 05:21 Estimated GFR 21 ml/min 07/20/18 05:21 BUN/Creatinine Ratio 16 % 07/20/18 05:21 Glucose 329 mg/dL (65-100) H 07/20/18 05:21 POC Glucose 303 (70-105) H 07/20/18 08:23 Hemoglobin A1c 10.4 % (4-6) H 07/18/18 15:35 Lactic Acid 1.80 mmol/L (0.7-2.0) 07/18/18 15:35 Calcium 8.2 mg/dL (8.4-10.2) L 07/20/18 05:21 Iron 21 ug/dL (37-170) L 07/19/18 16:04 TIBC 220 mcg/dL (250-450) L 07/19/18 16:04 Ferritin 77.0 ng/mL (13.0-400.0) 07/19/18 16:04 Total Bilirubin < 0.20 mg/dL (0.1-1.2) 07/19/18 07:56 AST 11 units/L (5-40) 07/19/18 07:56 ALT 29 units/L (7-56) 07/19/18 07:56 Alkaline Phosphatase 138 units/L (35-129) H 07/19/18 07:56 Total Protein 6.3 g/dL (6.3-8.2) 07/19/18 07:56 Albumin 3.0 g/dL (3.9-5) L 07/19/18 07:56 Albumin/Globulin Ratio 0.9 % 07/19/18 07:56 Vitamin B12 549.8 pg/mL (211-911) 07/19/18 16:04 Folate 12.17 ng/mL (7.3-26.0) 07/19/18 16:04 Urine Color Straw (Yellow) 07/18/18 19:53 Urine Turbidity Clear (Clear) 07/18/18 19:53 Urine pH 5.0 (5.0-7.0) 07/18/18 19:53 Ur Specific [place] 1.010 (1.003-1.030) 07/18/18 19:53 Urine Protein 100 mg/dl mg/dL (Negative) 07/18/18 19:53 Urine Glucose (UA) 150 mg/dL (Negative) 07/18/18 19:53 Urine Ketones Neg mg/dL (Negative) 07/18/18 19:53 Urine Blood Sm (Negative) 07/18/18 19:53 Urine Nitrite Neg (Negative) 07/18/18 19:53 Urine Bilirubin Neg (Negative) 07/18/18 19:53 Urine Urobilinogen < 2.0 mg/dL (<2.0) 07/18/18 19:53 Ur Leukocyte Esterase Neg (Negative) 07/18/18 19:53 Urine WBC (Auto) 1.0 /HPF (0.0-6.0) 07/18/18 19:53 Urine RBC (Auto) 2.0 /HPF (0.0-6.0) 07/18/18 19:53 U Epithel Cells (Auto) 1.0 /HPF (0-13.0) 07/18/18 19:53 Urine Mucus Few /HPF 07/18/18 19:53 Hepatitis A IgM Ab Non-reactive (NonReactive) 07/19/18 10:33 Hep Bs Antigen Non-reactive (Negative) 07/19/18 10:33 Hep B Core IgM Ab Non-reactive (NonReactive) 07/19/18 10:33 Hepatitis C Antibody Non-reactive (NonReactive) 07/19/18 10:33
--- NOTE | 2018-07-20 19:03 | Progress Note ---
Assessment and Plan Impression: * Acute kidney injury on chronic kidney disease --Patient initially seen by SCN in Jan 2018 - SCr 2.0mg/dL; did not return for follow up * Bilateral PNA * Acute hypoxic respiratory failure * Type II DM * Hypertension Plan: * Patient appears clinically better today. Renal function slightly improved * Abx/steroids per primary team * Serologic work up pending * Avoid nephrotoxic agents * Dose medications for renal function Subjective Date of service: 07/20/18 Interval history: Patient reports that she is feeling better Objective - Vital Signs Vital signs: Vital Signs - 12hr 07/20/18 07/20/18 07/20/18 09:09 09:36 10:00 Temperature Pulse Rate 122 H Pulse Rate [ 85 Anterior Bilateral Throughout] Pulse Rate [ 114 H Bilateral] Pulse Rate [ 101 H From Monitor] Respiratory Rate Respiratory 18 Rate [Anterior Bilateral Throughout] Respiratory 18 Rate [Bilateral ] Blood Pressure O2 Sat by Pulse 99 93 Oximetry 07/20/18 07/20/18 07/20/18 12:47 14:30 16:24 Temperature 98.9 F 97.9 F Pulse Rate 100 H 96 H Pulse Rate [ 88 Anterior Bilateral Throughout] Pulse Rate [ 92 H Bilateral] Pulse Rate [ From Monitor] Respiratory 20 16 Rate Respiratory 18 Rate [Anterior Bilateral Throughout] Respiratory 18 Rate [Bilateral ] Blood Pressure 129/78 115/78 O2 Sat by Pulse 90 91 Oximetry - General Appearance General appearance: well-developed, well-nourished EENT: ATNC Respiratory: Present: Decreased Breath Sounds Cardiology: regular, S1S2 Gastrointestinal: normal, no tenderness, no distended Integumentary: no rash, warm and dry Neurologic: alert and oriented x3 Musculoskeletal: other (no edema) Psychiatric: cooperative - Lab 07/19/18 07:56 07/20/18 05:21 Most recent lab results Calcium 8.2 mg/dL (8.4-10.2) L 07/20/18 05:21 Medications & Allergies - Medications Allergies/Adverse Reactions: Allergies No Known Allergies Allergy (Verified 05/21/17 23:15) Home Medications: Home Medications Medication Instructions Recorded Confirmed Last Taken Type Metoprolol Xl [Metoprolol 1 tab PO DAILY 07/18/18 07/18/18 Unknown History SUCCINATE ER TAB] Olmesartan/Amlodipin/Hcthiazid 1 tab PO DAILY 07/18/18 07/18/18 Unknown History [Uamlrsi-[id number] 40-5-12.5] Active Medications: Generic Name Dose Route Start Last Admin Trade Name Freq PRN Reason Stop Dose Admin Acetaminophen 650 mg 07/18/18 21:58 Tylenol PO Q4H PRN Pain MILD(1-3)/Fever >100.5/KELLY Albuterol 2.5 mg 07/19/18 06:25 Proventil IH Q4HRT PRN Shortness Of Breath Albuterol/Ipratropium 1 ampul 07/19/18 08:00 07/20/18 16:14 Duoneb *Not For Prn Use* IH Not Given QIDRT TIA Amlodipine Besylate 5 mg 07/19/18 10:00 07/20/18 09:36 Norvasc PO 5 mg QDAY TIA Administration Azithromycin 500 mg 07/21/18 10:00 Zithromax PO 07/23/18 10:01 QDAY TIA Hydromorphone HCl 0.5 mg 07/18/18 21:58 Dilaudid IV Q3H PRN Pain , Severe (7-10) Ceftriaxone Sodium 2 gm in 100 mls @ 200 mls/hr 07/19/18 10:00 07/20/18 09:46 Rocephin/Ns 2 Gm/100 Ml IV 200 mls/hr Q24HR TIA Administration Protocol Insulin Glargine 20 units 07/20/18 22:00 Lantus SUB-Q QHS TIA Insulin Human Lispro 0 unit 07/20/18 07:30 07/20/18 17:48 Humalog SUB-Q 3 unit ACHS [facility] Administration Protocol Insulin Human Lispro 5 unit 07/20/18 11:30 07/20/18 17:48 Humalog SUB-Q 5 unit AC [facility] Administration Methylprednisolone Sodium Succinate 20 mg 07/19/18 07:00 07/20/18 14:19 Solu-Medrol IV 20 mg Q8HR TIA Administration Metoprolol Succinate 100 mg 07/19/18 10:00 07/20/18 09:36 Toprol Xl PO 100 mg QDAY TIA Administration Ondansetron HCl 4 mg 07/18/18 21:58 Zofran IV Q8H PRN Nausea And Vomiting Oxycodone/Acetaminophen 1 tab 07/18/18 21:58 07/19/18 21:42 Percocet 5/325 PO 1 tab Q6H PRN Administration Pain, Moderate (4-6) Sodium Chloride 10 ml 07/18/18 22:00 07/20/18 09:48 Sodium Chloride Flush Syringe 10 Ml IV 10 ml BID TIA Administration Sodium Chloride 10 ml 07/18/18 21:58 Sodium Chloride Flush Syringe 10 Ml IV PRN PRN LINE FLUSH
[2018-07-20] MEDS ORDERED: AMBIEN PO ONE (20:32)
[2018-07-20] MEDS ORDERED: LANTUS SUB-Q SCH (22:00)
[2018-07-20] MEDS ORDERED: VASELINE LIP THERAPY TP PRN (23:45)
[2018-07-21] MEDS: SOLU-Medrol IV SCH ×2 (05:37→13:25)
[2018-07-21 06:09] LABS: Calcium 8.3 mg/dL (8.4-10.2)
[2018-07-21] MEDS: DUONEB *Not for PRN Use IH SCH ×2 (08:15→12:43)
--- NOTE | 2018-07-21 09:16 | Progress Note ---
Assessment and Plan Impression: * Acute kidney injury on chronic kidney disease --Patient initially seen by SCN in Jan 2018 - SCr 2.0mg/dL; did not return for follow up * Bilateral PNA * Acute hypoxic respiratory failure * Type II DM * Hypertension Plan: * Renal function is gradually improved * Abx/steroids per primary team * Serologic work up pending * Avoid nephrotoxic agents * Dose medications for renal function Subjective Date of service: 07/21/18 Objective - Vital Signs Vital signs: Vital Signs - 12hr 07/20/18 07/20/18 07/21/18 22:00 23:41 05:51 Temperature 98.1 F 98.5 F Pulse Rate 106 H 100 H Pulse Rate [ Anterior Bilateral Throughout] Pulse Rate [ Bilateral] Respiratory 16 20 20 Rate Respiratory Rate [Anterior Bilateral Throughout] Respiratory Rate [Bilateral ] Blood Pressure 141/82 135/81 O2 Sat by Pulse 90 87 Oximetry 07/21/18 07/21/18 08:15 08:47 Temperature Pulse Rate Pulse Rate [ 89 Anterior Bilateral Throughout] Pulse Rate [ 96 H Bilateral] Respiratory Rate Respiratory 16 Rate [Anterior Bilateral Throughout] Respiratory 16 Rate [Bilateral ] Blood Pressure O2 Sat by Pulse 95 Oximetry - Lab 07/19/18 07:56 07/21/18 05:20 Most recent lab results Calcium 8.3 mg/dL (8.4-10.2) L 07/21/18 05:20 Medications & Allergies - Medications Allergies/Adverse Reactions: Allergies No Known Allergies Allergy (Verified 05/21/17 23:15) Home Medications: Home Medications Medication Instructions Recorded Confirmed Last Taken Type Metoprolol Xl [Metoprolol 1 tab PO DAILY 07/18/18 07/18/18 Unknown History SUCCINATE ER TAB] Olmesartan/Amlodipin/Hcthiazid 1 tab PO DAILY 07/18/18 07/18/18 Unknown History [[id number] 40-5-12.5] Active Medications: Generic Name Dose Route Start Last Admin Trade Name Freq PRN Reason Stop Dose Admin Acetaminophen 650 mg 07/18/18 21:58 Tylenol PO Q4H PRN Pain MILD(1-3)/Fever >100.5/KELLY Albuterol 2.5 mg 07/19/18 06:25 Proventil IH Q4HRT PRN Shortness Of Breath Albuterol/Ipratropium 1 ampul 07/19/18 08:00 07/21/18 08:15 Duoneb *Not For Prn Use* IH 1 ampul QIDRT TIA Administration Amlodipine Besylate 5 mg 07/19/18 10:00 07/20/18 09:36 Norvasc PO 5 mg QDAY TIA Administration Azithromycin 500 mg 07/21/18 10:00 Zithromax PO 07/23/18 10:01 QDAY TIA Hydromorphone HCl 0.5 mg 07/18/18 21:58 Dilaudid IV Q3H PRN Pain , Severe (7-10) Hydrophilic Ointment 1 applic 07/20/18 23:45 Vaseline Lip Therapy TP DIRECT PRN Dry Lips Ceftriaxone Sodium 2 gm in 100 mls @ 200 mls/hr 07/19/18 10:00 07/20/18 09:46 Rocephin/Ns 2 Gm/100 Ml IV 200 mls/hr Q24HR TIA Administration Protocol Insulin Glargine 20 units 07/20/18 22:00 07/20/18 21:52 Lantus SUB-Q 20 units QHS TIA Administration Insulin Human Lispro 0 unit 07/20/18 07:30 07/20/18 21:53 Humalog SUB-Q 4 unit ACHS [facility] Administration Protocol Insulin Human Lispro 5 unit 07/20/18 11:30 07/20/18 17:48 Humalog SUB-Q 5 unit AC TIA Administration Methylprednisolone Sodium Succinate 20 mg 07/19/18 07:00 07/21/18 05:37 Solu-Medrol IV 20 mg Q8HR TIA Administration Metoprolol Succinate 100 mg 07/19/18 10:00 07/20/18 09:36 Toprol Xl PO 100 mg QDAY TIA Administration Ondansetron HCl 4 mg 07/18/18 21:58 Zofran IV Q8H PRN Nausea And Vomiting Oxycodone/Acetaminophen 1 tab 07/18/18 21:58 07/19/18 21:42 Percocet 5/325 PO 1 tab Q6H PRN Administration Pain, Moderate (4-6) Sodium Chloride 10 ml 07/18/18 22:00 07/20/18 21:54 Sodium Chloride Flush Syringe 10 Ml IV 10 ml BID TIA Administration Sodium Chloride 10 ml 07/18/18 21:58 Sodium Chloride Flush Syringe 10 Ml IV PRN PRN LINE FLUSH
--- NOTE | 2018-07-21 09:25 | Discharge Summary ---
Providers - Providers Date of Admission: 07/18/18 19:22 Attending physician: GIANLUCA FERNANDES MD 07/18/18 22:02 Consult to Physician [CONS] Routine Comment: Consulting Provider: KERWIN DAVIS Physician Instructions: Reason For Exam: michael Primary care physician: JOHN MOYER [facility] Hospitalization Condition: Stable Hospital course: 52-year-old woman who presented with fever cough and shortness of breath. She was diagnosed with pneumonia and asthma exacerbation. She received antibiotics, steroids and nebulizer treatments. She improved. She also received IV fluids for acute kidney injury. She is being discharged with a course of antibiotics and steroid taper which she must completely upon discharge. 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 Obesity Disposition: TO HOME OR SELFCARE Time spent for discharge: 33 mins Core Measure Documentation - Palliative Care Palliative Care/ Comfort Measures: Not Applicable - Core Measures Any of the following diagnoses?: none Exam - Constitutional Vitals: Temp Pulse Resp BP Pulse Ox 98.5 F 89 16 135/81 95 07/21/18 05:51 07/21/18 08:15 07/21/18 08:15 07/21/18 05:51 07/21/18 08:47 General appearance: Present: no acute distress, well-nourished - EENT Eyes: Present: PERRL ENT: hearing intact, clear oral mucosa - Neck Neck: Present: supple, normal ROM - Respiratory Respiratory effort: normal Respiratory: bilateral: CTA - Cardiovascular Heart Sounds: Present: S1 & S2. Absent: rub, click - Extremities Extremities: pulses symmetrical, No edema Peripheral Pulses: within normal limits - Abdominal General gastrointestinal: Present: soft, non-tender, non-distended, normal bowel sounds Female genitourinary: Present: normal - Integumentary Integumentary: Present: clear, warm, dry - Musculoskeletal Musculoskeletal: gait normal, strength equal bilaterally - Psychiatric Psychiatric: appropriate mood/affect, intact judgment & insight - Neurologic Neurologic: CNII-XII intact, moves all extremities Plan Follow up with: CHRIS MAHER [Staff Physician] - 3-5 Days Forms: Work/School Release Form Prescriptions: Insulin Glargine [Lantus VIAL] 20 units SUB-Q QHS #1 vial ALBUTEROL Inhaler(NF) [VENTOLIN Inhaler(NF)] 1 puff IH Q4H PRN #1 inha PRN Reason: Shortness Of Breath Amoxicillin/Potassium Clav [Augmentin 875-125 Tablet] 1 each PO BID #8 tablet Azithromycin [Zithromax TAB] 250 mg PO QDAY #2 tablet Insulin Lispro [HumaLOG VIAL] 0 units SQ AC #1 vial Prednisone [predniSONE 5 mg (6-Day Pack, 21 Tabs)] 5 mg PO .TAPER #1 tab.ds.pk
[2018-07-21] MEDS: HumaLOG SUB-Q SCH ×4 (09:36→13:00)
[2018-07-21] MEDS ORDERED: ZITHROMAX PO SCH (10:00)
[2018-07-21 11:34] VITALS: BP 172/95
[2018-07-21] MEDS: ROCEPHIN/NS 2 GM/100 ML 2 GM/100 ML BAG IV SCH (11:34)
[2018-07-21] MEDS: NORVASC PO SCH (11:34)
[2018-07-21] MEDS: TOPROL XL PO SCH (11:34)
[2018-07-21] MEDS: SODIUM CHLORIDE FLUSH SYRINGE 10 ML IV SCH (11:35)
[2018-07-21] MEDS ORDERED: AFLURIA QUAD 2018-2019 SYRINGE IM ONE (14:00)
[2018-07-21 21:05] LABS: ANA Screen, IFA Positive (Negative)
[2018-07-21 22:37] LABS: Gamma Globulin 1.2 g/dL (0.8-1.7)
[2018-07-23 12:44] LABS: Myeloperoxidase Antibody <1.0 AI (<1.0)
== END 2018-07-21 15:25 | disposition home or self-care (01) | DRG 682 ==
LOC: ED 12:01 → 3A 19:22
PROVIDERS: ADMIT Internal Medicine; ATTEND Internal Medicine
DX: N17.9 Acute kidney failure, unspecified (principal); J18.9 Pneumonia, unspecified organism; J96.01 Acute respiratory failure with hypoxia; J45.901 Unspecified asthma with (acute) exacerbation; E11.65 Type 2 diabetes mellitus with hyperglycemia; N18.9 Chronic kidney disease, unspecified; I12.9 Hypertensive chronic kidney disease with stage 1 through stage 4 chronic kidney disease, or unspecified chronic kidney disease; E11.22 Type 2 diabetes mellitus with diabetic chronic kidney disease; E66.9 Obesity, unspecified; Z79.899 Other long term (current) drug therapy; Z82.49 Family history of ischemic heart disease and other diseases of the circulatory system; Z71.3 Dietary counseling and surveillance
CPT/HCPCS: 36415; 71046; 76770; 80048; 80053; 80074; 81001; 82140; 82607; 82728; 82747; 82962; 83036; 83550; 84132; 84165; 85007; 85025; 86021; 86038; 86160; 87040; 90686; 93005; 93010; 94640; 94760; G0378; J0456; J0696; J1815; J2930; J7030; J7050